=== PATIENT | female | born 2005 | race Caucasian/White ===

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

== ENCOUNTER 2025-07-13 18:03 | Emergency (ER) | payer OTHER, SELFPAY ==
--- NOTE | ~2025-07-13 | CT_ITS ---
CT FACIAL BONES WITHOUT CONTRAST INDICATION: Fall COMPARISON: None. TECHNIQUE: Axial 2.5 mm images of the maxillofacial bones/sinuses were obtained without contrast. Additional axial, coronal and sagittal reformatted images were rendered. FINDINGS: No facial bone fracture is identified. The sinuses are clear. The nasal septum is midline. No soft tissue swelling or foreign body is noted. On reformatted images, there is no orbital floor fracture. The temporomandibular joint alignment is maintained. IMPRESSION: Normal CT of the face without contrast. All CT scans at this facility are performed using low dose modulation techniques as appropriate to perform exam including the following: automated exposure control; use of iterative reconstruction technique; adjustment of the mA and/or kV according to patient size (this includes techniques or standardized protocols for targeted exams where dose is matched to indication/reason for exam). Reviewed, dictated and finalized at location [facility]. [facility] [employer] IMPRESSION: Normal CT of the face without contrast. All CT scans at this facility are performed using low dose modulation techniqu es as appropriate to perform exam including the following: automated exposure c ontrol; use of iterative reconstruction technique; adjustment of the mA and/or kV according to patient size (this includes techniques or standardized protocol s for targeted exams where dose is matched to indication/reason for exam).
[2025-07-13 18:09] VITALS: BP 98/64; PULSE 87; RESP 16; TEMP 36.8; O2SAT 98
[2025-07-13] MEDS: ACETAMINOPHEN 500 MG TABLET 1000 MG PO (20:49)
[2025-07-13 21:36] VITALS: BP 132/60; PULSE 75; RESP 18; TEMP 36.7; O2SAT 100
--- NOTE | 2025-07-14 00:47 | ED.GENADULT ---
HPI - General Adult General Chief complaint: Fall Stated complaint: fall Time Seen by Provider: 07/13/25 19:31 History of Present Illness HPI narrative: 20-year-old female presenting after a ground level fall. Patient reports she tripped on her shoe catching herself with her hands but sustaining a nose injury. Denies loss of consciousness, nasausea/vomiting, dizziness/vision changes, headaches, or neck pain. Related Data Allergies Allergy/AdvReac Type Severity Reaction Status Date / Time No Known Allergies Allergy Verified 07/13/25 18:05 Review of Systems Review of Systems: All systems reviewed & are unremarkable except as noted in HPI and below PMFSH Past Medical History Medical History Encounter for routine adult health examination without abnormal findings Iron deficiency anemia Easy bruising Right flank pain Ear pressure Diarrhea Anxiety Adult BMI 19-24 kg/sq m Fever Routine sports physical exam Back pain Follow up ADHD Menstrual bleeding problem On dedicated intermodal truck driver drug therapy Hx of migraines Encounter to establish care Social History Social History Smoking status: Never smoker Second hand tobacco smoke exposure: No Lack of Transportation: YES Lack of Food: Never True Current Housing: I Have Housing Concerned About Future Housing: No Difficulty Paying Gas/Electric Bills: No Difficulty Paying for Meds: No Currently Unemployed: No Education: High School Diploma/GED Difficulty w/ Childcare or Family Care: No Living arrangements: with family Gender identity (if verbalized by the patient): Female Exam Narrative: GENERAL: Well-appearing, well-nourished, and in no acute distress. HEAD: Normocephalic, atraumatic. EYES: PERRLA and EOMI. ENT: Nares clear, no rhinorrhea or epistaxis. Mild edema and ecchymosis to the base of the nose without signs of deformity. Mucous membranes moist. Oropharynx without tonsillar hypertrophy exudate or other lesions. Bilateral TMs pearly hawk non-bulging NECK: Supple. No adenopathy or masses. No carotid bruits or JVD CHEST: Clear to auscultation. No respiratory distress. No wheezes rales or rhonchi HEART: Regular rate and rhythm. No murmur heard. Normal peripheral pulses. ABDOMEN: Soft, nontender, nondistended, normal active bowel sounds. Right lower flank small superficial abrasion. EXTREMITIES: Normal range of motion. No edema. SKIN: Warm, dry, no rash. NEURO: No focal deficits. Alert and oriented x3. PSYCH: Normal mood and affect Course Vital Signs Vital signs: Vital Signs Temperature 98.2 F 07/13/25 18:09 Pulse Rate 87 07/13/25 18:09 Respiratory Rate 16 07/13/25 18:09 Blood Pressure 98/64 L 07/13/25 18:09 Pulse Oximetry 98 07/13/25 18:09 Temperature 98.0 F 07/13/25 21:36 Pulse Rate 75 07/13/25 21:36 Respiratory Rate 18 07/13/25 21:36 Blood Pressure 132/60 07/13/25 21:36 Pulse Oximetry 100 07/13/25 21:36 MDM MDM Narrative Medical decision making narrative: 20-year-old female presenting after a ground level fall. Patient reports she tripped on her shoe catching herself with her hands but sustaining a nose injury. Denies loss of consciousness, nausea/vomiting, dizziness/vision changes, headaches, or neck pain. Upon my initial assessment patient appears nontoxic with stable vitals. Physical exam demonstrates no focal neurological deficits however she does have mild bruising and swelling to the base of her nose. Facial imaging demonstrates no acute abnormalities. Administered Tylenol which helped with the patient's pain. Patient's mother declined head imaging as they were only concerned about her nose. All questions were answered to the patient's satisfaction. The patient is appropriate for outpatient treatment and follow-up. Given reasons to return. Differential Diagnosis Differential Diagnosis: Differential diagnostic considerations for fall injuries include syncope, concussion with loss of consciousness, concussion without loss of consciousness, vertebral fracture, extremity fracture/dislocation. Medical Records I have reviewed the following patient records and this information was taken into consideration when formulating the assessment and plan.: previous labs, previous ER visits and previous clinic visits Imaging Data Radiologist's impression: ITS Impressions Face CT 07/13/25 20:48 IMPRESSION: Normal CT of the face without contrast. All CT scans at this facility are performed using low dose modulation techniques as appropriate to perform exam including the following: automated exposure control; use of iterative reconstruction technique; adjustment of the mA and/or kV according to patient size (this includes techniques or standardized protocols for targeted exams where dose is matched to indication/reason for exam). Discharge Plan Discharge Clinical Impression: Fall, Swollen nose Patient Disposition: Home Condition: Stable Instructions: Head Injury (ED) Additional Instructions: Return to the emergency department if you experience fever, chest pain, shortness of breath, abdominal pain with nausea and vomiting, weakness, numbness/tingling, or any other symptoms that are concerning to you. Take anti-inflammatories (Aleve, Ibuprofen, Naproxen, etc) and Tylenol as needed for pain. Follow up with primary care doctor. Patient Language: Indonesian Prescriptions: No Action norgestimate-ethinyl estradiol [Tri-Sprintec (28)] 0.18/0.215/0.25 mg-0.035mg (28) tablet 1 tablet PO DAILY Qty: 84 3RF ferrous sulfate [Feosol] 325 mg (65 mg iron) tablet 325 mg PO BID Qty: 180 1RF minocycline 100 mg tablet 100 mg PO BID Qty: 20 1RF montelukast 10 mg tablet See Rx Instructions .ROUTE .COMPLEX Qty: 90 0RF Dose Instruction: Take 1 tablet by mouth once daily Rx Instructions: Take 1 tablet by mouth once daily Follow-up/Referrals: Gui Akins MD [Primary Care Provider, Internal Medicine]
== END 2025-07-13 21:39 | disposition home or self-care (01) ==
PROVIDERS: PCP Internal Medicine
DX: S09.92XA Unspecified injury of nose, initial encounter (principal); D50.9 Iron deficiency anemia, unspecified; Z79.3 Long term (current) use of hormonal contraceptives; W01.0XXA Fall on same level from slipping, tripping and stumbling without subsequent striking against object, initial encounter
CPT/HCPCS: 70486; 99284; A9270